=== PATIENT | female | born 1995 | race African-American/Black ===

== ENCOUNTER 2016-11-18 23:29 | Emergency (ER) | payer SELFPAY ==
[~2016-11-18 23:29] MED LIST: NAPR250T2 PO; NAPR550T PO
--- NOTE | 2016-11-18 23:53 | PHYS DOC ---
Past Medical History Past Medical History: Anemia Past Surgical History: No Surgical History Alcohol Use: None Drug Use: None Adult General Chief Complaint Chief Complaint: DIZZY/LIGHT HEADED HPI HPI Patient is a 21 year old female with a history of anemia who presents today with dizziness especially on changing position from laying down to standing that began 3 days ago. Patient denies any nausea vomiting, denies any chance she is , she states she uses Depakote shots for control and she had her last shot 1 month ago. Patient denies any abdominal pain. Denies any headache. Denies any fever coughing or congestion. Review of Systems Review of Systems Constitutional: See history of present illness Eyes: Denies change in visual acuity, redness, or eye pain [] HENT: Denies nasal congestion or sore throat [] Respiratory: Denies cough or shortness of breath [] Cardiovascular: No additional information not addressed in HPI [] GI: Denies any nausea vomiting or diarrhea Integument: Denies rash or skin lesions [] Neurologic: Dizziness Endocrine: Denies polyuria or polydipsia [] Current Medications Current Medications Current Medications Medications (Trade) Dose Ordered Sig/Mack Start Time Stop Time Status Last Admin Dose Admin Meclizine HCl (Antivert) 12.5 mg 1X ONCE 11/19/16 00:00 11/19/16 00:01 DC 11/19/16 00:21 12.5 MG Sodium Chloride (Iv Sodium Chloride 0.9% 1000ml Bag) 1,000 ml @ 1,000 mls/hr 1X ONCE 11/19/16 00:00 11/19/16 00:59 11/19/16 00:20 1,000 MLS/HR Allergies Allergies Allergies Coded Allergies Type Severity Reaction Last Updated Verified No Known Drug Allergies 02/23/14 No Physical Exam Physical Exam Constitutional: Well developed, well nourished, no acute distress, non-toxic appearance. [] HENT: Normocephalic, atraumatic, bilateral external ears normal, oropharynx moist, no oral exudates, nose normal. [] Eyes: PERRLA, EOMI, conjunctiva normal, no discharge. [] Neck: Normal range of motion, no tenderness, supple, no stridor. [] Cardiovascular:Heart rate regular rhythm, no murmur [] Lungs & Thorax: Bilateral breath sounds clear to auscultation [] Abdomen: Bowel sounds normal, soft, no tenderness, no masses, no pulsatile masses. [] Skin: Warm, dry, no erythema, no rash. [] Back: No tenderness, no CVA tenderness. [] Extremities: No tenderness, no cyanosis, no clubbing, ROM intact, no edema. [] Neurologic: Alert and oriented X 3, normal motor function, normal sensory function, no focal deficits noted. Cranial nerves II through XII intact Psychologic: Affect normal, judgement normal, mood normal. [] Current Patient Data Vital Signs Vital Signs Date Time Temp Pulse Resp B/P Pulse Ox O2 Delivery O2 Flow Rate FiO2 11/19/16 00:02 98.5 75 16 115/68 99 Room Air 98.5 EKG EKG [] Radiology/Procedures Radiology/Procedures [] Course & Med Decision Making Course & Med Decision Making Pertinent Labs and Imaging studies reviewed. (See chart for details) Patient is in the ED with dizziness on changing position that began 3 days ago. She is in no distress. Orthostatics supine blood pressure 115/68, heart rate 75, sitting blood pressure 109/79 heart rate 85, standing blood pressure 126/79 heart rate 85. Negative urine hCG. Chem 8 hemoglobin 12.9, hematocrit 38%, no acute findings on the chem 8. Patient is in no distress. Symptoms consistent with vertigo. Instructed to change positions very slowly. Instructed push fluids. Instructed to follow-up with her own doctor in the next 7 days. Discharged with meclizine. Provided return precautions and discharged in stable condition. Dragon Disclaimer Dragon Disclaimer This electronic medical record was generated, in whole or in part, using a voice recognition dictation system. Departure Departure Impression: Primary Impression: Vertigo Disposition: 01 HOME, SELF-CARE Condition: STABLE Referrals: NO PCP (PCP) Follow-up with your own doctor in one week Patient Instructions: Vertigo, [id number] Additional Instructions: You were seen for dizziness especially on changing position. We recommend you change positions very slowly especially when coming from laying down to standing. Ensure you seat fast before you stand. Try and push fluids. Use the medications provided as needed. Follow-up with your own doctor in the next 7 days. Scripts Meclizine Hcl 25 Mg Tablet1 Tab PO PRN TID #20 TAB Prov:CHUCK DE SOUZA APRN 11/19/16 CHUCK DE SOUZA APRN Nov 18, 2016 23:53
[2016-11-19] MEDS ORDERED: IV NORMAL SALINE 1000ML BAG 1,000 ML IV ONE
[2016-11-19] MEDS ORDERED: MECLIZINE HCL 12.5 MG TABLET. PO ONE
[2016-11-19 00:41] LABS: POTASSIUM ISTAT 5.3 mmol/L (3.5-5.0)
[2016-11-19] MEDS ORDERED: MECL25TA3 PO (00:46)
[2016-11-19 01:00] LABS: BILIRUBIN,URINE NEGATIVE (NEG); GLUCOSE,URINE NEGATIVE (NEG); NITRITE,URINE NEGATIVE (NEG); PROTEIN,URINE NEGATIVE (NEG-TRACE)
[2016-11-19 01:19] LABS: BACTERIA,URINE MANY /HPF (0-FEW); SQUAMOUS EPITHELIAL CELL,UR MANY /LPF
[2016-11-19 01:20] LABS: NEG OBC UR NEG; POS OBC UR POS
== END 2016-11-19 00:45 | disposition home or self-care (01) ==
LOC: ER 23:29
DX: R42 Dizziness and giddiness (principal)
CPT/HCPCS: 80047; 81001; 81025; 99283; J8597; J7030

== ENCOUNTER 2017-08-22 12:59 | Emergency (ER) | payer OTHER ==
[~2017-08-22] VITALS: Ht 165.1 cm; Wt 49.0 kg
[~2017-08-22 12:59] MED LIST changes: +MECL25TA3 PO; +NAPR-682 PO; -NAPR250T2 PO; +NAPR250T6 PO; -NAPR550T PO
[2017-08-22 14:14] VITALS: BP 105/72
[2017-08-22 14:40] LABS: BILIRUBIN,URINE SMALL (NEG); GLUCOSE,URINE NEGATIVE (NEG); NITRITE,URINE NEGATIVE (NEG); PROTEIN,URINE 100 mg/dL (NEG-TRACE)
[2017-08-22 14:49] LABS: BACTERIA,URINE MODERATE /HPF (0-FEW); RBC,URINE 20-40 /HPF (0-2); SQUAMOUS EPITHELIAL CELL,UR FEW /LPF; WBC,URINE 20-40 /HPF (0-4)
[2017-08-22] MEDS ORDERED: IBUP-1007 PO (15:50)
[2017-08-22] MEDS ORDERED: PHEN100T82 PO (15:50)
[2017-08-22] MEDS ORDERED: CEPH500T PO (15:50)
--- NOTE | 2017-08-22 15:51 | PHYS DOC ---
Past Medical History Past Medical History: Anemia Past Surgical History: No Surgical History Alcohol Use: None Drug Use: None Adult General Chief Complaint Chief Complaint: PELVIC PAIN HPI HPI Patient is a 21 year old female who presents stating "I am bleeding down there when I pee" for 3 days. Patient states the vaginal area is irritated. Patient denies any concerns for STDs. Denies any chance she is . Denies any abdominal pain nausea vomiting fever or back pain. Review of Systems Review of Systems Constitutional: Denies fever or chills [] Eyes: Denies change in visual acuity, redness, or eye pain [] HENT: Denies nasal congestion or sore throat [] Respiratory: Denies cough or shortness of breath [] Cardiovascular: No additional information not addressed in HPI [] GI: Denies abdominal pain, nausea, vomiting, bloody stools or diarrhea [] : Dysuria and hematuria, vaginal irritation Musculoskeletal: Denies back pain or joint pain [] Integument: Denies rash or skin lesions [] Neurologic: Denies headache, focal weakness or sensory changes [] Endocrine: Denies polyuria or polydipsia [] Allergies Allergies Allergies Coded Allergies Type Severity Reaction Last Updated Verified No Known Drug Allergies 02/23/14 No Physical Exam Physical Exam Constitutional: Well developed, well nourished, no acute distress, non-toxic appearance. [] HENT: Normocephalic, atraumatic, bilateral external ears normal, oropharynx moist, no oral exudates, nose normal. [] Eyes: PERRLA, EOMI, conjunctiva normal, no discharge. [] Neck: Normal range of motion, no tenderness, supple, no stridor. [] Cardiovascular:Heart rate regular rhythm, no murmur [] Lungs & Thorax: Bilateral breath sounds clear to auscultation [] Abdomen: Bowel sounds normal, soft, no tenderness, no masses, no pulsatile masses. [] Pelvic exam external pelvic appears normal, cervix is closed, no CMT, no adnexal tenderness, small amount of white discharge in the vaginal vault. Skin: Warm, dry, no erythema, no rash. [] Back: No tenderness, no CVA tenderness. [] Extremities: No tenderness, no cyanosis, no clubbing, ROM intact, no edema. [] Neurologic: Alert and oriented X 3, normal motor function, normal sensory function, no focal deficits noted. [] Psychologic: Affect normal, judgement normal, mood normal. [] Current Patient Data Vital Signs Vital Signs Date Time Temp Pulse Resp B/P (MAP) Pulse Ox O2 Delivery O2 Flow Rate FiO2 08/22/17 14:14 98.2 72 16 100 Room Air 98.2 Lab Values Laboratory Tests Test 08/22/17 14:05 08/22/17 14:21 Urine Collection Type Void Urine Color Dk yellow Urine Clarity Clear Urine pH 6.0 Urine Specific [place] 1.025 Urine Protein 100 mg/dL (NEG-TRACE) Urine Glucose (UA) Negative mg/dL (NEG) Urine Ketones (Stick) Trace mg/dL (NEG) Urine Blood Large (NEG) Urine Nitrite Negative (NEG) Urine Bilirubin Small (NEG) Urine Urobilinogen Dipstick 1.0 mg/dL (0.2 mg/dL) Urine Leukocyte Esterase Moderate (NEG) Urine RBC 20-40 /HPF (0-2) Urine WBC 20-40 /HPF (0-4) Urine Squamous Epithelial Cells Few /LPF Urine Bacteria Moderate /HPF (0-FEW) Urine Mucus Marked /LPF POC Urine HCG, Qualitative Hcg negative (Negative) Microbiology 08/22/17 Wet Prep - Final, Complete EKG EKG [] Radiology/Procedures Radiology/Procedures [] Course & Med Decision Making Course & Med Decision Making Pertinent Labs and Imaging studies reviewed. (See chart for details) Patient is in the ED with vaginal irritation, dysuria and hematuria for 3 days. Negative urine hCG, urine positive for UTI, wet prep positive for BV. Discharged Flagyl and cephalexin. Instructed to push fluids. Discharged Pyridium. Follow-up with PCP in 1-2 weeks. Dragon Disclaimer Dragon Disclaimer This electronic medical record was generated, in whole or in part, using a voice recognition dictation system. Departure Departure Impression: Primary Impression: UTI (urinary tract infection) Additional Impression: Bacterial vaginosis Disposition: 01 HOME, SELF-CARE Condition: STABLE Referrals: NO PCP (PCP) follow up in one week Patient Instructions: Bacterial Vaginosis, [id number], Urinary Tract Infection Additional Instructions: You were seen for urinary tract infection and bacterial vaginosis. Take the prescribed antibiotics as ordered until completed. Follow-up with your doctor in 1-2 weeks. Drink 8 ounces of water every day. Ibuprofen for pain. Take Pyridium prescribed for pain. It will make your urine orange but help with the pain. Scripts Ibuprofen (IBUPROFEN) 600 Mg Tablet 600 MG PO PRN Q6HRS Y for INFLAMMATION, #20 TAB Prov: CHUCK DE SOUZA APRN 08/22/17 Cephalexin (CEPHALEXIN) 500 Mg Tablet 1 TAB PO BID, #14 TAB Prov: CHUCK DE SOUZA APRN 08/22/17 Phenazopyridine Hcl (PYRIDIUM) 100 Mg Tablet 100 MG PO TID, #9 TAB Prov: CHUCK DE SOUZA APRN 08/22/17 Problem Qualifiers Primary Impression: UTI (urinary tract infection) Urinary tract infection type: acute cystitis Hematuria presence: with hematuria Qualified Codes: N30.01 - Acute cystitis with hematuria CHUCK DE SOUZA APRN Aug 22, 2017 15:51
--- NOTE | 2017-08-26 13:26 | VNOTE ---
CALL BACK NOTE CALL BACK Microbiology 08/22/17 Wet Prep - Final, Complete 08/22/17 Urine Culture - Final, Complete 08/22/17 Urine Culture Result 1 (BRADY) - Final, Complete 08/22/17 Urine Culture Result 2 (BRADY) - Final, Complete Patient is positive for gonorrhea and not treated. Called patient and gave her results. She states she is not sure if she can afford the medications. Informed patient she can return to the ED and be treated. She states she is looking for a ride and will be in the ED as soon as she can. CHUCK DE SOUZA APRN Aug 26, 2017 13:25
== END 2017-08-22 16:17 | disposition home or self-care (01) ==
LOC: ER 12:59
DX: N39.0 Urinary tract infection, site not specified (principal); N76.0 Acute vaginitis; B96.89 Other specified bacterial agents as the cause of diseases classified elsewhere
CPT/HCPCS: 81001; 81025; 87086; 87491; 87591; 99284; Q0111

== ENCOUNTER 2017-08-26 17:42 | Emergency (ER) | payer OTHER ==
[~2017-08-26] VITALS: Ht 165.1 cm; Wt 45.8 kg
[~2017-08-26 17:42] MED LIST changes: +CEPH500T PO; +IBUP-1007 PO; +PHEN100T82 PO
[2017-08-26 17:53] VITALS: BP 118/68
--- NOTE | 2017-08-26 18:07 | PHYS DOC ---
Past Medical History Past Medical History: Anemia Past Surgical History: No Surgical History Alcohol Use: None Drug Use: None Adult General Chief Complaint Chief Complaint: OTHER COMPLAINTS HPI HPI Patient is a 21 year old female presents to the emergency department seeking treatment for gonorrhea. Patient was evaluated in the emergency department August 222016. Her gonorrhea culture came back positive. She was notified and is here seeking treatment.. Review of Systems Review of Systems Constitutional: Denies fever or chills [] Eyes: Denies change in visual acuity, redness, or eye pain [] HENT: Denies nasal congestion or sore throat [] Respiratory: Denies cough or shortness of breath [] Cardiovascular: No additional information not addressed in HPI [] GI: Denies abdominal pain, nausea, vomiting, bloody stools or diarrhea [] : Vaginal irritation without pelvic pain Musculoskeletal: Denies back pain or joint pain [] Integument: Denies rash or skin lesions [] Neurologic: Denies headache, focal weakness or sensory changes [] Endocrine: Denies polyuria or polydipsia [] Allergies Allergies Allergies Coded Allergies Type Severity Reaction Last Updated Verified No Known Drug Allergies 02/23/14 No Physical Exam Physical Exam Constitutional: Well developed, well nourished, no acute distress, non-toxic appearance. [] Neck: Normal range of motion, no tenderness, supple without lymphadenopathy Cardiovascular:Heart rate regular rhythm, no murmur [] Lungs & Thorax: Bilateral breath sounds clear to auscultation [] Abdomen: Bowel sounds normal, soft, no tenderness, no masses, no pulsatile masses. [] Skin: Warm, dry, no erythema, no rash. [] Back: No tenderness, no CVA tenderness. [] Extremities: No tenderness, no cyanosis, no clubbing, ROM intact, no edema. [] Neurologic: Alert and oriented X 3, normal motor function, normal sensory function, no focal deficits noted. [] Psychologic: Affect normal, judgement normal, mood normal. [] EKG EKG [] Radiology/Procedures Radiology/Procedures [] Course & Med Decision Making Course & Med Decision Making Pertinent Labs and Imaging studies reviewed. (See chart for details) []Lab was reviewed, gonorrhea positive, Chlamydia negative. She was given Rocephin 250 mg IM in the emergency department. She was instructed on follow-up for her partner as well as abstinence for 10 days after both partners have been treated. Dragon Disclaimer Dragon Disclaimer This electronic medical record was generated, in whole or in part, using a voice recognition dictation system. Departure Departure Impression: Primary Impression: Gonorrhea Disposition: 01 HOME, SELF-CARE Condition: STABLE Referrals: NO PCP (PCP) [facility] Patient Instructions: Gonorrhea, Females and Males Additional Instructions: Please request that your sexual partners report to the health department for evaluation and treatment. No sexual intercourse for 10 days after both partners have been treated. AGNES SERRA MEDICAL ASSISTING INSTRUCTOR Aug 26, 2017 18:07
[2017-08-26] MEDS ORDERED: cefTRIAXone IM 250 MG VIAL IM ONE (18:15)
== END 2017-08-26 18:30 | disposition home or self-care (01) ==
LOC: ER 17:42
DX: A54.9 Gonococcal infection, unspecified (principal); Z86.2 Personal history of diseases of the blood and blood-forming organs and certain disorders involving the immune mechanism
CPT/HCPCS: 96372; 99283; J0696

== ENCOUNTER 2017-10-04 19:30 | Emergency (ER) | payer OTHER ==
[~2017-10-04] VITALS: Ht 167.6 cm; Wt 45.8 kg
[2017-10-04 19:51] VITALS: BP 113/69
[2017-10-04] MEDS ORDERED: FLUC150T PO (19:54)
--- NOTE | 2017-10-04 19:54 | PHYS DOC ---
Past Medical History Past Medical History: Anemia, STD Past Surgical History: No Surgical History Alcohol Use: None Drug Use: None Adult General Chief Complaint Chief Complaint: VAGINAL PROBLEM HPI HPI Patient is a 22 year old E male presents to the emergency department with a four-day history of vaginal itching and burning, thick white vaginal discharge. Patient reports she was evaluated at the health Department last week and tested for STD. She states she was told results were negative. She reports she is monogamous with 1 partner. Patient received her last Depo-Provera injection one month ago. Review of Systems Review of Systems Constitutional: Denies fever or chills [] Eyes: Denies change in visual acuity, redness, or eye pain [] HENT: Denies nasal congestion or sore throat [] Respiratory: Denies cough or shortness of breath [] Cardiovascular: No additional information not addressed in HPI [] GI: Denies abdominal pain, nausea, vomiting, bloody stools or diarrhea [] : Denies dysuria or hematuria , vaginal burning and itching[] Musculoskeletal: Denies back pain or joint pain [] Integument: Denies rash or skin lesions [] Neurologic: Denies headache, focal weakness or sensory changes [] Endocrine: Denies polyuria or polydipsia [] All other systems were reviewed and found to be within normal limits, except as documented in this note. Allergies Allergies Allergies Coded Allergies Type Severity Reaction Last Updated Verified No Known Drug Allergies 02/23/14 No Physical Exam Physical Exam Constitutional: Well developed, well nourished, no acute distress, non-toxic appearance. [] Abdomen: Bowel sounds normal, soft, no tenderness, no masses, no pulsatile masses. : deferred [] Skin: Warm, dry, no erythema, no rash. [] Back: No tenderness, no CVA tenderness. [] EKG EKG [] Radiology/Procedures Radiology/Procedures [] Course & Med Decision Making Course & Med Decision Making Pertinent Labs and Imaging studies reviewed. (See chart for details) [] Dragon Disclaimer Dragon Disclaimer This electronic medical record was generated, in whole or in part, using a voice recognition dictation system. Departure Departure Impression: Primary Impression: Vaginitis Disposition: 01 HOME, SELF-CARE Condition: STABLE Referrals: NO PCP (PCP) [facility] Patient Instructions: Vaginitis, [id number] Scripts Fluconazole (DIFLUCAN) 150 Mg Tablet 1 TAB PO ONCE, #1 TAB 1 Refill Prov: AGNES SERRA APRN 10/04/17 Problem Qualifiers Primary Impression: Vaginitis Chronicity: acute Qualified Codes: N76.0 - Acute vaginitis AGNES SERRA APRN Oct 04, 2017 19:54
== END 2017-10-04 20:00 | disposition home or self-care (01) ==
LOC: ER 19:30
DX: N76.0 Acute vaginitis (principal); Z86.2 Personal history of diseases of the blood and blood-forming organs and certain disorders involving the immune mechanism
CPT/HCPCS: 99283

== ENCOUNTER 2017-12-05 18:13 | Emergency (ER) | payer OTHER ==
[2017-12-05] MEDS: BUPIVACAINE MPF 0.25% 10 ML VIAL. IJ ×2 (18:30)
== END 2017-12-05 19:35 | disposition home or self-care (01) ==
LOC: ER 18:13
DX: S61.213A Laceration without foreign body of left middle finger without damage to nail, initial encounter (principal); S61.215A Laceration without foreign body of left ring finger without damage to nail, initial encounter; W26.0XXA Contact with knife, initial encounter; Y93.89 Activity, other specified; Y92.89 Other specified places as the place of occurrence of the external cause; Y99.8 Other external cause status
CPT/HCPCS: 12001; 99283; J3490

== ENCOUNTER 2017-12-19 00:09 | Emergency (ER) | payer OTHER | END 2017-12-19 02:30 | disposition left against medical advice (07) | LOC: ER 00:09 | DX: S61.213D Laceration without foreign body of left middle finger without damage to nail, subsequent encounter (principal); Z53.21 Procedure and treatment not carried out due to patient leaving prior to being seen by health care provider; X58.XXXD Exposure to other specified factors, subsequent encounter ==

== ENCOUNTER 2017-12-19 12:03 | Emergency (ER) | payer OTHER | END 2017-12-19 12:42 | disposition home or self-care (01) | LOC: ER 12:03 | DX: S61.213D Laceration without foreign body of left middle finger without damage to nail, subsequent encounter (principal); S61.215D Laceration without foreign body of left ring finger without damage to nail, subsequent encounter; X58.XXXD Exposure to other specified factors, subsequent encounter | CPT/HCPCS: 99281; 99282 ==

== ENCOUNTER 2018-04-17 13:44 | Emergency (ER) | payer OTHER ==
[2018-04-17 14:17] LABS: URINE HCG POC HCG NEGATIVE (Negative)
[2018-04-17 14:18] LABS: BILIRUBIN,URINE NEGATIVE (NEG); CLARITY,URINE CLEAR; COLOR,URINE YELLOW; GLUCOSE,URINE NEGATIVE (NEG); NITRITE,URINE NEGATIVE (NEG); PH,URINE 5.5; PROTEIN,URINE 30 mg/dL (NEG-TRACE)
[2018-04-17 14:31] LABS: BACTERIA,URINE MODERATE /HPF (0-FEW); SQUAMOUS EPITHELIAL CELL,UR MOD /LPF; WBC,URINE OCC /HPF (0-4)
[2018-04-17] MEDS: AZITHROMYCIN 250 MG TABLET. PO (14:36)
[2018-04-17] MEDS: cefTRIAXone IM 250 MG VIAL IM (14:43)
[2018-04-19 14:20] LABS: CHLAMYDIA PROBE Negative (Negative); GC PROBE Negative (Negative)
== END 2018-04-17 16:16 | disposition home or self-care (01) ==
LOC: ER 13:44
DX: N89.8 Other specified noninflammatory disorders of vagina (principal); Z86.2 Personal history of diseases of the blood and blood-forming organs and certain disorders involving the immune mechanism
CPT/HCPCS: 81001; 81025; 87086; 87491; 87591; 96372; 99284; J0696; Q0111; Q0144

== ENCOUNTER 2018-07-09 21:03 | Emergency (ER) | payer OTHER ==
[~2018-07-09] VITALS: Ht 165.1 cm; Wt 49.0 kg
[~2018-07-09 21:03] MED LIST changes: +FLUC150T PO
[2018-07-09 21:20] VITALS: BP 111/69
[2018-07-09] MEDS ORDERED: FLUT9.9S NS (21:50)
--- NOTE | 2018-07-09 21:51 | PHYS DOC ---
Past Medical History Past Medical History: Anemia, STD Past Surgical History: No Surgical History Alcohol Use: None Drug Use: None Adult General Chief Complaint Chief Complaint: EARACHE/EAR PAIN HPI HPI Patient is a 22 year old female who presents to the ER with complaints of left ear pain that started today. Pt states that 2-3 weeks ago she experienced similar pain. Currently, she reports her pain as a 4 out of 10 on the pain scale. She denies any drainage from the ear, fever, injury to the ear, nausea, vomiting, or sore throat. Pt reports runny nose in addition to ear pain. Review of Systems Review of Systems Constitutional: Denies fever or chills [] Eyes: Denies change in visual acuity, redness, or eye pain [] HENT: Denies nasal congestion or sore throat, reports runny nose and left ear pain, denies difficulty hearing from L ear or drainage ] Respiratory: Denies cough or shortness of breath [] Cardiovascular: No additional information not addressed in HPI [] GI: Denies abdominal pain, nausea, or vomiting Neurologic: Denies headache, focal weakness or sensory changes [] All other systems were reviewed and found to be within normal limits, except as documented in this note. Allergies Allergies Allergies Coded Allergies Type Severity Reaction Last Updated Verified No Known Drug Allergies 02/23/14 No Physical Exam Physical Exam Constitutional: Well developed, well nourished, no acute distress, non-toxic appearance. [] HENT: Normocephalic, atraumatic, bilateral external ears normal, bilateral TMs normal. post-nasal drainage present, oropharynx moist, no oral exudates, nasal turbinates edematous and erythematous Eyes: normal Neck: Normal range of motion, no tenderness, supple, no stridor. [] Cardiovascular:Heart rate regular rhythm, no murmur [] Lungs & Thorax: Bilateral breath sounds clear to auscultation [] Skin: Warm, dry, no erythema, no rash. [] Neurologic: Alert and oriented X 3, normal motor function, normal sensory function, no focal deficits noted. [] Psychologic: Affect normal, judgement normal, mood normal. [] Current Patient Data Vital Signs Vital Signs Date Time Temp Pulse Resp B/P (MAP) Pulse Ox O2 Delivery O2 Flow Rate FiO2 07/09/18 21:20 99.2 72 16 111/69 (83) 100 Room Air 99.2 EKG EKG [] Radiology/Procedures Radiology/Procedures [] Course & Med Decision Making Course & Med Decision Making Pertinent Labs and Imaging studies reviewed. (See chart for details) Allergic rhinitis and eustachian tube dysfunction. Prescription for flonase nasal spray written. Patient verbalized an understanding of home care, medications, follow-up, and return to ED instructions and was in agreement with the plan of care. [] Staff Physician Addendum: I was working in the ER during the course of this patient's visit. I was available for consultation as needed, but I was not directly involved in the care of this patient. Dragon Disclaimer Dragon Disclaimer This electronic medical record was generated, in whole or in part, using a voice recognition dictation system. Departure Departure Impression: Primary Impression: Allergic rhinitis Additional Impression: Dysfunction of eustachian tube Disposition: HOME, SELF-CARE Condition: STABLE Referrals: NO PCP (PCP) Patient Instructions: Allergic Rhinitis Additional Instructions: Fill prescription and use it as directed. Follow-up with her primary care doctor in 1-2 days. He can take Tylenol or ibuprofen as needed for pain. Return to the ER for symptoms worsen. Scripts Fluticasone Propionate (Flonase Allergy Relief) 9.9 Ml [place].susp 2 SPRAYS NS DAILY for 14 Days, #1 BOTTLE Prov: TERRI COREY APRN 07/09/18 Problem Qualifiers Primary Impression: Allergic rhinitis Allergic rhinitis trigger: unspecified Allergic rhinitis seasonality: unspecified Qualified Codes: J30.9 - Allergic rhinitis, unspecified Additional Impression: Dysfunction of eustachian tube Laterality: left Qualified Codes: H69.82 - Other specified disorders of eustachian tube, left ear TERRI COREY ALMOND GRINDER Jul 09, 2018 21:51 JASMYN THACKER MD Jul 15, 2018 02:17
== END 2018-07-09 22:03 | disposition home or self-care (01) ==
LOC: ER 21:03
DX: H69.90 Unspecified Eustachian tube disorder, unspecified ear (principal); J30.9 Allergic rhinitis, unspecified
CPT/HCPCS: 99283

== ENCOUNTER 2019-06-01 15:43 | Observation (INO) | payer OTHER ==
[2018-10-09 17:10] VITALS: BP 112/58
[~2019-06-01 15:43] MED LIST changes: +FLUT9.9S NS
[2019-06-01 16:17] LABS: BILIRUBIN,URINE NEGATIVE (NEG); CLARITY,URINE CLEAR; COLOR,URINE YELLOW; NITRITE,URINE NEGATIVE (NEG); PROTEIN,URINE 30 mg/dL (NEG-TRACE)
[2019-06-01 16:22] LABS: BARBITURATES NEG (NEG); BENZODIAZEPINES NEG (NEG); CANNABINOIDS NEG (NEG); COCAINE NEG (NEG); METHADONE NEG (NEG); OPIATES NEG (NEG); PHENCYCLIDINE NEG (NEG)
[2019-06-01 16:24] LABS: AMPHETAMINE/METHAMPHETAMINE NEG (NEG); SQUAMOUS EPITHELIAL CELL,UR MOD /LPF
[2019-06-01 16:25] LABS: BACTERIA,URINE MANY /HPF (0-FEW); RBC,URINE 0 /HPF (0-2)
[2019-06-01] MEDS: IV RINGERS,LACTATED 1000ML 1,000 ML IV SCH ×2 (17:37→19:42)
--- NOTE | 2019-06-01 17:56 | RAD ---
Exam: Ultrasound biophysical profile Indication: Fall Technique: Real-time grayscale and color Doppler images of the uterus were obtained by the department application support consultant. Comparisons: None FINDINGS: Single live intrauterine gestation. heart rate measured at 1 33 bpm Placental location: Fundal position: Cephalic Cervix is not well visualized. BPP: breathing movement: 2 motion: 2 tone: 2 Amniotic fluid volume: 2 MYRTLE: 13.4 cm IMPRESSION: 1. Single live intrauterine gestation with Normal biophysical profile. 2. MYRTLE measured at 13:4 Electronically signed by: Guille Saldana MD (06/01/2019 5:54 PM) [facility]
[2019-06-01] MEDS ORDERED: ACETAMINOPHEN 500 MG TABLET PO ONE (20:30)
== END 2019-06-01 20:30 | disposition home or self-care (01) ==
LOC: 3 SO LND 15:43
PROVIDERS: ADMIT Specialist; ATTEND Specialist
DX: O99.89 Other specified diseases and conditions complicating pregnancy, childbirth and the puerperium (principal); M54.9 Dorsalgia, unspecified; O62.9 Abnormality of forces of labor, unspecified; Z3A.36 36 weeks gestation of pregnancy
CPT/HCPCS: 36415; 76819; 80307; 81001; 85460; 87086; G0378; G0379; J7120

== ENCOUNTER 2020-04-24 12:16 | Emergency (ER) | payer OTHER ==
[~2020-04-24] VITALS: Ht 162.6 cm; Wt 45.9 kg
[~2020-04-24 12:16] MED LIST changes: +MECL-75 PO; -MECL25TA3 PO
[2020-04-24 12:41] LABS: BILIRUBIN,URINE NEGATIVE (NEG); CLARITY,URINE CLEAR; COLOR,URINE YELLOW; NITRITE,URINE NEGATIVE (NEG); PH,URINE 6.5 (<5.0-8.0); PROTEIN,URINE NEGATIVE (NEG-TRACE)
--- NOTE | 2020-04-24 12:41 | PHYS DOC ---
Past Medical History Past Medical History: Anemia, STD Past Surgical History: No Surgical History Smoking Status: Never Smoker Alcohol Use: None Drug Use: None General Adult EDM: Chief Complaint: VAGINAL BLEEDING HPI: HPI: Patient is a 24 year old female who presents with vaginal spotting ,nausea, and being emotional for 2 days. Patient reports that she had a positive test but she wants to confirm her . Patient is unsure when her last menstrual period was. Patient denies any STD concerns and she is reporting a clear vaginal discharge that she states is normal for her. Patient denies any abdominal pain. Review of Systems: Review of Systems: GI: Denies abdominal pain.+ nausea, +vomiting, denies bloody stools. +diarrhea. [] Heart Score: Risk Factors: Risk Factors: DM, Current or recent (<one month) smoker, HTN, HLP, family h istory of CAD, obesity. Risk Scores: Score 0 - 3: 2.5% MACE over next 6 weeks - Discharge Home Score 4 - 6: 20.3% MACE over next 6 weeks - Admit for Clinical Observation Score 7 - 10: 72.7% MACE over next 6 weeks - Early Invasive Strategies Allergies: Allergies: Allergies Coded Allergies Type Severity Reaction Last Updated Verified No Known Drug Allergies 02/23/14 No Physical Exam: PE: Constitutional: Well developed, well nourished, no acute distress, non-toxic appearance. [] HENT: Normocephalic, atraumatic, bilateral external ears normal, oropharynx moist, no oral exudates, nose normal. [] Eyes: PERRLA, EOMI, conjunctiva normal, no discharge. [] Neck: Normal range of motion, no tenderness, supple, no stridor. [] Cardiovascular:Heart rate regular rhythm, no murmur [] Lungs & Thorax: Bilateral breath sounds clear to auscultation [] Abdomen: Bowel sounds normal, soft, no tenderness, no masses, no pulsatile masses. [] Skin: Warm, dry, no erythema, no rash. [] Back: No tenderness, no CVA tenderness. [] Extremities: No tenderness, no cyanosis, no clubbing, ROM intact, no edema. [] Neurologic: Alert and oriented X 3, normal motor function, normal sensory func tion, no focal deficits noted. [] Psychologic: Affect normal, judgement normal, mood normal. [] Normal physical exam EKG: EKG: [] Radiology/Procedures: Radiology/Procedures: [] Impression: [facility] [address] [place] [address] IMAGING REPORT Signed PATIENT: ZABRINA DOBBS DACCOUNT: [id number] : 1995 LOCATION: ER AGE: 24 SEX: F EXAM STATUS: REG ER ORD. PHYSICIAN: YUE DOMINGUEZ APRN REASON: VAGINAL BLEEDING PROCEDURE: OB < 14 WKS EXAM: Obstetrics sonogram. HISTORY: Vaginal bleeding. TECHNIQUE: Sonographic imaging of the pelvis was performed. COMPARISON: None. FINDINGS: The uterus measures 10 x 8 x 8 cm. There is an intrauterine gestational sac with pole and yolk sac. The crown-rump length is 5 mm, corresponding with a gestational age of 6 weeks and 2 days. heart rate is normal at 162 bpm. The right ovary is unremarkable. The left ovary is not seen. There is no pelvic free fluid. The gestational sac is normal in configuration and location. There is a suspected small subchronic hematoma along the superior aspect of the gestational sac measuring 10 mm. IMPRESSION: 1. Single intrauterine fetus with normal heart rate and gestational age of 6 weeks and 2 days. 2. Suspected small subchorionic hematoma. Electronically signed by: Lisette Dorman MD (04/24/2020 1:35 PM) [id number] DICTATED and SIGNED BY: LISETTE DORMAN MD DATE: 04/24/20 1335 Course & Med Decision Making: Course & Med Decision Making Pertinent Labs and Imaging studies reviewed. (See chart for details) Abdomen is soft and nontender. Urine shows positive . Alert and oriented. Speaks in full clear sentences. Ambulatory with a steady gait. Skin pink warm and dry. Afebrile. Denies dysuria symptoms. Denies fever. A urinalysis will be performed to check for infection and a pelvic exam will be done. As with all newly women I will do a pelvic exam and test for sexually transmitted diseases. However patient has no concerns for sexually transmitted diseases and refusing treatment today. Patient is educated that in 48 hours she will be called only if they are positive. Pelvic Exam: Modeling Analyst present Abdomen: Nontender External Genitalia: Normal Skin Speculum: Normal vaginal mucosa, white cervical discharge, Cervical OS redness Bimanual: No adnexal masses or tenderness, No CMT [] Dragon Disclaimer: Ishmael Disclaimer: This electronic medical record was generated, in whole or in part, using a voice recognition dictation system. Departure Departure Impression: Primary Impression: UTI (urinary tract infection) Qualified Codes: N39.0 - Urinary tract infection, site not specified Additional Impression: Vaginal bleeding affecting early Disposition: HOME, SELF-CARE Condition: STABLE Referrals: NO PCP (PCP) KAN CLARK Jr, MD Patient Instructions: - Urinary Tract Infection, Vaginal Bleeding Dur ing , [id number] Additional Instructions: Follow-up with your OB doctor as soon as possible. I also referred you to 1 if needed. Drink plenty of fluids. Take medication as prescribed and with food. Scripts Cephalexin (KEFLEX) 500 Mg Capsule 1 CAP PO BID for 7 Days, #14 CAP 0 Refills Prov: YUE DOMINGUEZ APRN 04/24/20 Ondansetron (ONDANSETRON ODT) 4 Mg Tab.rapdis 1 TAB PO PRN Q6-8HRS, #16 TAB Prov: YUE DOMINGUEZ APRN 04/24/20 Justicifation of Admission Dx: Justifications for Admission: Justification of Admission Dx: N/A YUE DOMINGUEZ APRN Apr 24, 2020 12:41
[2020-04-24] MEDS ORDERED: ONDANSETRON ODT 4 MG TAB.RAPDIS. PO ONE (12:45)
[2020-04-24 12:58] LABS: BACTERIA,URINE MODERATE /HPF (0-FEW); RBC,URINE RARE /HPF (0-2); SQUAMOUS EPITHELIAL CELL,UR MANY /LPF
--- NOTE | 2020-04-24 13:38 | RAD ---
EXAM: Obstetrics sonogram. HISTORY: Vaginal bleeding. TECHNIQUE: Sonographic imaging of the pelvis was performed. COMPARISON: None. FINDINGS: The uterus measures 10 x 8 x 8 cm. There is an intrauterine gestational sac with pole and yolk sac. The crown-rump length is 5 mm, corresponding with a gestational age of 6 weeks and 2 days. heart rate is normal at 162 bpm. The right ovary is unremarkable. The left ovary is not seen. There is no pelvic free fluid. The gestational sac is normal in configuration and location. There is a suspected small subchronic hematoma along the superior aspect of the gestational sac measuring 10 mm. IMPRESSION: 1. Single intrauterine fetus with normal heart rate and gestational age of 6 weeks and 2 days. 2. Suspected small subchorionic hematoma. Electronically signed by: Lisette Aburto MD (04/24/2020 1:35 PM) [id number]
[2020-04-24 13:56] LABS: BASO % 1 % (0-3); EOS # 0.1 x10^3/uL (0.0-0.7); EOS % 1 % (0-3); HEMATOCRIT 34.7 % (36.0-47.0); HEMOGLOBIN 11.4 g/dL (12.0-15.5); LYMPH % 35 % (24-48); MEAN CORPUSCULAR HEMOGLOBIN 28 pg (25-35); MEAN CORPUSCULAR HGB CONC 33 g/dL (31-37); MEAN CORPUSCULAR VOLUME 84 fL (79-100); MONO # 0.5 x10^3/uL (0.0-1.1); MONO % 9 % (0-9); NEUT # 3.1 x10^3/uL (1.8-7.7); NEUT % 54 % (31-73); PLATELET COUNT 298 x10^3/uL (140-400); RED BLOOD COUNT 4.14 x10^6/uL (3.50-5.40); RED CELL DISTRIBUTION WIDTH 13.1 % (11.5-14.5); WHITE BLOOD COUNT 5.7 x10^3/uL (4.0-11.0)
[2020-04-24 14:07] LABS: PROTHROMBIN TIME PATIENT 13.2 SEC (11.7-14.0)
[2020-04-24 14:07] LABS: CALCIUM 8.6 mg/dL (8.5-10.1); CREATININE 0.7 mg/dL (0.6-1.0); GFR 125.5; POTASSIUM 4.2 mmol/L (3.5-5.1)
[2020-04-24 14:13] LABS: ALBUMIN 3.5 g/dL (3.4-5.0); TOTAL BILIRUBIN 0.3 mg/dL (0.2-1.0)
[2020-04-24 14:47] VITALS: BP 119/60
[2020-04-24] MEDS ORDERED: ONDA4TAB12 PO (15:12)
[2020-04-24] MEDS ORDERED: CEPH-264 PO (15:12)
[2020-04-25 20:08] LABS: GC PROBE Negative (Negative)
== END 2020-04-24 15:38 | disposition home or self-care (01) ==
LOC: ER 12:16
DX: O23.41 Unspecified infection of urinary tract in pregnancy, first trimester (principal); O46.91 Antepartum hemorrhage, unspecified, first trimester; Z3A.01 Less than 8 weeks gestation of pregnancy
CPT/HCPCS: 36415; 76801; 80053; 81001; 81025; 84702; 85025; 85610; 86850; 86900; 86901; 87086; 87491; 87591; 99284; Q0111